=== PATIENT | male | born 1995 ===

== ENCOUNTER 2016-11-06 11:28 | Emergency (ER) | payer MEDICAID, OTHER ==
[2016-11-06 11:44] VITALS: BMI 46.5
[2016-11-06 11:48] VITALS: RESP 18
[2016-11-06] MEDS ORDERED: Albuterol 0.083% Inhal Sol (2.5 mg/3 mL) UD IH STA (13:57)
[2016-11-06] MEDS ORDERED: Albuterol 0.083% Inhal Sol (2.5 mg/3 mL) UD ONE ×2 (13:59→14:10)
--- NOTE | 2016-11-06 14:22 | RAD ---
HISTORY: sob COMPARISON: No prior. TECHNIQUE: Chest PA and lateral FINDINGS: LUNGS: Poor inspiration with low lung volumes, mild crowded bronchovascular markings and mild bibasilar atelectasis. . PLEURA: No significant pleural effusion identified. No pneumothorax apparent. CARDIOVASCULAR: Normal. OSSEOUS STRUCTURES: Minor multilevel degenerative spondylosis of the thoracic spine. . VISUALIZED UPPER ABDOMEN: Normal. OTHER FINDINGS: None. IMPRESSION: Poor inspiration with low lung volumes, mild crowded bronchovascular markings and mild bibasilar atelectasis. .
--- NOTE | 2016-11-06 14:30 | C.PDOC ---
History Of Present Illness 21 y/o male presents to the ED with complains of SOB which onset today while running while at gym in school. Pt states he used his inhaler with some improvement. Denies fever, URI symptoms or any other complaints. No h/o of intubation and no recent h/o of admission for asthma. (-) chest pain Time Seen by Provider: 11/06/16 13:50 Chief Complaint (Nursing): Shortness Of Breath History Per: Patient History/Exam Limitations: no limitations Onset/Duration Of Symptoms: Hrs Current Symptoms Are (Timing): Better Initiating Event: Exercising/Sports Exacerbating Factor(s): Exertion Current Respiratory Medications: Albuterol Severity: Mild Associated Symptoms: denies: Fever, Chest Pain, Bloody Cough, Productive Cough Recent travel outside of the [place]: No Past Medical History Reviewed: Historical Data, Nursing Documentation, Vital Signs Vital Signs: Last Vital Signs Temp 98.5 F 11/06/16 15:06 Pulse 94 H 11/06/16 15:06 Resp 18 11/06/16 15:06 BP 122/75 11/06/16 15:06 Pulse Ox 97 11/06/16 15:06 - Medical History PMH: Anxiety, Asthma, Depression, Diabetes (insulin dependent), Gastritis, HTN ( TACHYCARDIA), Hypercholesterolemia, Pneumonia, Schizophrenia Comment Only: Arthritis (KNEE PAIN), Sleep Apnea (SNORES) - [facility] Procedures ESOPHAGOGASTRODUODENOSCOPY [EGD] W/CLOSED BIOPSY (03/19/14) Family History: States: Unknown Family Hx - Social History Hx Tobacco Use: No Hx Alcohol Use: No Hx Substance Use: No - Immunization History Hx Tetanus Toxoid Vaccination: Yes Hx Influenza Vaccination: Yes Hx Pneumococcal Vaccination: Yes Review Of Systems Except As Marked, All Systems Reviewed And Found Negative. Constitutional: Negative for: Fever ENT: Negative for: Nose Congestion, Throat Pain Cardiovascular: Negative for: Chest Pain Respiratory: Positive for: Shortness of Breath. Negative for: Cough Physical Exam - Physical Exam Appears: Non-toxic, No Acute Distress, Other (obese) Skin: Warm, Dry, No Rash Head: Atraumatic, Normacephalic Eye(s): bilateral: Normal Inspection, EOMI Ear(s): Bilateral: Normal Nose: Normal Oral Mucosa: Moist Throat: Normal Neck: Normal ROM, Supple Chest: Symmetrical Cardiovascular: Rhythm Regular Respiratory: Normal Breath Sounds, No Accessory Muscle Use, No Rales, No Rhonchi , No Wheezing Gastrointestinal/Abdominal: Soft Extremity: Bilateral: Atraumatic Neurological/Psych: Oriented x3 ED Course And Treatment O2 Sat by Pulse Oximetry: 98 (on room air) Pulse Ox Interpretation: Normal Progress Note: Albuterol ordered. On reassessment, patient is resting comfortably with no wheezing, chest pain, or retractions. Oxygen saturation and breath sounds have improved. Patient is alert and oriented x 3. Patient was advised to follow up with physician/clinic in 1-2 days and return to ED if symptoms worsen or persist. Disposition - Disposition Disposition: HOME/ ROUTINE Disposition Time: 15:00 Condition: STABLE Additional Instructions: Vaya a russell mdico o la clnica en 2-5 bowman sin falta, para mas evaluacin. Trainer los medicamentos al indicado. Volver a la carolina de emergencia en cualquier momento si los sntomas persisten o empeoran. Prescriptions: Albuterol HFA [Ventolin HFA 90 mcg/actuation (8 g)] 2 puff IH [id number] #1 puff Guaifenesin/Dextromethorphan [Diabetic Tussin] 10 ml PO Q6 PRN #1 bottle PRN Reason: Cough Instructions: Asthma (ED) Print Language: CZECH - Clinical Impression Clinical Impression: Exacerbation of asthma - PA / MIS MANAGER / Resident Statement MD/DO has reviewed & agrees with the documentation as recorded. - Scribe Statement The provider has reviewed the documentation as recorded by the Matthieu Hearn All medical record entries made by the Brockibroland were at my direction and personally dictated by me. I have reviewed the chart and agree that the record accurately reflects my personal performance of the history, physical exam, medical decision making, and the department course for this patient. I have also personally directed, reviewed, and agree with the discharge instructions and disposition.
[2016-11-06 15:07] VITALS: BP 122/75; PULSE 94; TEMP 98.5
[2016-11-06 20:45] VITALS: O2SAT 98
== END 2016-11-06 15:08 | disposition home or self-care (01) ==
LOC: C.ER 11:28
DX: J45.901 Unspecified asthma with (acute) exacerbation (principal)

== ENCOUNTER 2017-04-11 17:48 | Emergency (ER) | payer OTHER ==
[2017-04-11 17:48] VITALS: BMI 46.5
--- NOTE | 2017-04-11 20:04 | C.PDOC ---
History Of Present Illness 21 year old male who presents to the ER with a complaint of left foot pain after he twisted his left foot yesterday. Denies weakness or numbness. Time Seen by Provider: 04/11/17 18:23 Chief Complaint (Nursing): Lower Extremity Problem/Injury History Per: Patient History/Exam Limitations: no limitations Onset/Duration Of Symptoms: Days Current Symptoms Are (Timing): Still Present Recent travel outside of the [place]: No - Ankle/Foot Description Of Injury: Twisted Past Medical History Reviewed: Historical Data, Nursing Documentation, Vital Signs Vital Signs: Last Vital Signs Temp 98.5 F 04/11/17 20:05 Pulse 79 04/11/17 20:05 Resp 20 04/11/17 20:05 BP 131/86 04/11/17 20:05 Pulse Ox 99 04/11/17 20:05 - Medical History PMH: Anxiety, Asthma, Depression, Diabetes (insulin dependent), Gastritis, HTN ( TACHYCARDIA), Hypercholesterolemia, Pneumonia, Schizophrenia Comment Only: Arthritis (KNEE PAIN), Sleep Apnea (SNORES) - [facility] Procedures ESOPHAGOGASTRODUODENOSCOPY [EGD] W/CLOSED BIOPSY (03/19/14) Family History: States: Unknown Family Hx - Social History Hx Tobacco Use: No Hx Alcohol Use: No Hx Substance Use: No - Immunization History Hx Tetanus Toxoid Vaccination: Yes Hx Influenza Vaccination: Yes Hx Pneumococcal Vaccination: Yes Review Of Systems Musculoskeletal: Positive for: Foot Pain Neurological: Negative for: Weakness, Numbness Physical Exam - Physical Exam Appears: Non-toxic Skin: Normal Color, Warm, Dry Head: Atraumatic, Normacephalic Extremity: Normal ROM (x4), Tenderness (To lateral left foot), No Deformity Pulses: Left Dorsalis Pedis: Normal, Right Dorsalis Pedis: Normal Neurological/Psych: Oriented x3, Normal Speech, Normal Cognition ED Course And Treatment - Other Rad Left foot x-ray X-Ray: Interpreted by Me, Viewed By Me Interpretation: Positive fracture of the 5th metatarsal bone. Progress Note: Left foot x-ray ordered. Motrin administered. Patient splinted with posterior short leg splint that was applied by CP and checked by me, crutches given. Patient was instructed to follow up with podiatry. Disposition - Disposition Referrals: Alex Banks DPM [Staff Provider] - Roderick Adamson III, MD [Staff Provider] - Disposition: HOME/ ROUTINE Disposition Time: 20:01 Condition: STABLE Additional Instructions: Follow up within 1-2 days. Return to ED if feel worse. Prescriptions: Ibuprofen [Motrin Tab] 600 mg PO Q8 #30 tab Instructions: Foot Fracture in Adults (ED) Forms: [employer] (Welsh) - Clinical Impression Clinical Impression: Foot fracture, left - Scribe Statement The provider has reviewed the documentation as recorded by the Scribroland Lee All medical record entries made by the Scribe were at my direction and personally dictated by me. I have reviewed the chart and agree that the record accurately reflects my personal performance of the history, physical exam, medical decision making, and the department course for this patient. I have also personally directed, reviewed, and agree with the discharge instructions and disposition.
[2017-04-11 20:06] VITALS: BP 131/86; PULSE 79; RESP 20; TEMP 98.5; O2SAT 99
--- NOTE | 2017-04-12 09:43 | RAD ---
PROCEDURE: Left Foot Radiographs. HISTORY: fall COMPARISON: None. FINDINGS: BONES: There is oblique fracture which is nondisplaced at the proximal metaphysis/ epiphysis of the left 5th metatarsal bone. Is difficult to completely exclude articular involvement at the cuboid articulation with the 5th metatarsal bone. Local soft tissues appear unremarkable. JOINTS: As above SOFT TISSUES: Normal. OTHER FINDINGS: None. IMPRESSION: Oblique fracture at the base of the 5th metatarsal bone may be articular though this is not definite. No dislocation or subluxation. Remainder of the left foot appears unremarkable.
== END 2017-04-11 20:13 | disposition home or self-care (01) ==
LOC: C.ER 17:48
DX: S92.355A Nondisplaced fracture of fifth metatarsal bone, left foot, initial encounter for closed fracture (principal); X50.1XXA Overexertion from prolonged static or awkward postures, initial encounter; Y93.9 Activity, unspecified; Y92.9 Unspecified place or not applicable

== ENCOUNTER 2017-09-03 13:16 | Emergency (ER) | payer OTHER ==
[2017-09-03 13:16] VITALS: BMI 46.5
[2017-09-03 13:38] VITALS: PULSE 86; TEMP 97.9
--- NOTE | 2017-09-03 13:44 | C.PDOC ---
History Of Present Illness 22 y/o male hx DM type (2), hypercholesterolemia, and taking Pysch medication brought EMS c/o of agitation. The mother states that the patient was upset and took a bat and began to swing the bat around the house. The mother also states that the patient decided to go outside and continued to swing the bat. The mother reports" he lost his nerves." The patient denies dizziness, SOB,fever, chest pain, and headache. Time Seen by Provider: 09/03/17 13:27 History Per: EMS History/Exam Limitations: clinical condition Onset/Duration Of Symptoms: Hrs Current Symptoms Are (Timing): Still Present Additional History Per: EMS Past Medical History Reviewed: Historical Data, Nursing Documentation, Vital Signs Vital Signs: Last Vital Signs Temp 97.9 F 09/03/17 17:27 Pulse 86 09/03/17 17:27 Resp 18 09/03/17 17:27 BP 134/85 09/03/17 17:27 Pulse Ox 100 09/03/17 17:27 - Medical History PMH: Anxiety, Asthma, Depression, Diabetes (insulin dependent), Gastritis, HTN ( TACHYCARDIA), Hypercholesterolemia, Pneumonia, Schizophrenia Comment Only: Arthritis (KNEE PAIN), Sleep Apnea (SNORES) - [facility] Procedures ESOPHAGOGASTRODUODENOSCOPY [EGD] W/CLOSED BIOPSY (03/19/14) Family History: States: No Known Family Hx - Social History Hx Tobacco Use: No Hx Alcohol Use: No Hx Substance Use: No - Immunization History Hx Tetanus Toxoid Vaccination: Yes Hx Influenza Vaccination: Yes Hx Pneumococcal Vaccination: Yes Review Of Systems Except As Marked, All Systems Reviewed And Found Negative. Constitutional: Negative for: Fever Cardiovascular: Negative for: Chest Pain Respiratory: Negative for: Cough, Shortness of Breath Neurological: Negative for: Headache Psych: Positive for: Other (agitation). Negative for: Anxiety, Suicidal ideation Physical Exam - Physical Exam Appears: Non-toxic, No Acute Distress Skin: Warm, Dry Head: Normacephalic Eye(s): bilateral: Normal Inspection Oral Mucosa: Moist Neck: Supple Chest: Symmetrical Cardiovascular: Rhythm Regular Respiratory: Normal Breath Sounds, No Rales, No Rhonchi Gastrointestinal/Abdominal: Soft, No Tenderness, No Guarding, No Rebound Back: No CVA Tenderness Extremity: No Tenderness, Capillary Refill (2<sec.) Neurological/Psych: Oriented x3 Gait: Steady ED Course And Treatment O2 Sat by Pulse Oximetry: 98 Progress Note: [facility] was notified at 14:39pm today. Labs and exam results are ready for request. Patient is medically cleared by [facility]. Upon reassessment, the patient is afebrile and comfortable. The patient is PO tolerant and in no acute distress. Medical Decision Making Medical Decision Making: Patient was seen by chikis to discharge patient home for outpatient follow up. Disposition Discussed With : katharine Counseled Patient/Family Regarding: Diagnosis, Need For Followup - Disposition Referrals: [facility] [Outside] Disposition: HOME/ ROUTINE Disposition Time: 16:38 Condition: STABLE Additional Instructions: follow up with your family doctor in 2 days call to make an appointment continue your medications at home return to ER if symptoms worsens or progress you were seen and evaluated by psychiatrist Dr. Burleson for discharge home Instructions: Bipolar Disorder (ED), Autism Spectrum Disorder (ED) Forms: Gen Discharge Inst Mongolian, [employer] (Mongolian) Print Language: INDONESIAN - Clinical Impression Clinical Impression: Manic bipolar I disorder - Scribe Statement The provider has reviewed the documentation as recorded by the Scribe Mariposa Petersen
[2017-09-03 17:28] VITALS: BP 134/85; RESP 18
[2017-09-03 18:22] VITALS: O2SAT 98
== END 2017-09-03 17:30 | disposition home or self-care (01) ==
LOC: C.ER 13:16
DX: F31.9 Bipolar disorder, unspecified (principal)